=== PATIENT | male | born 1960 | race Caucasian/White ===

== ENCOUNTER 2025-03-30 19:43 | Emergency (ER) | payer MEDICARE ==
[~2025-03-30] VITALS: Ht 180.3 cm; Wt 120.0 kg
[2025-03-30 19:56] VITALS: TEMP 98
--- NOTE | 2025-03-30 20:05 | ELECTROCARDIOGRAPH REPORT ---
[facility] Test Date: 2025-03-30 Test Time: 19:52:21 Pat Name: DEBI CAMPBELL Department: EMERGENCY ROOM [id number] Room: Gender: M Director Of Automation: RICKEY : 1960 Requested By: WICHO ADAMSON Order Number: [id number] Reading MD: Dr. JYOTI Washington Measurements Intervals [place] Rate: 52 P: 48 OR: 201 QRS: -29 QRSD: 113 T: 54 QT: 441 QTc: 411 Interpretive Statements Sinus bradycardia Inferior infarct, old Consider anterior infarct Electronically Signed On 04-01-2025 11:47:[address] JYOTI Washington Please click the below link to view image of tracing.
--- NOTE | 2025-03-30 20:12 | Physician Documentation ---
History of Present Illness General Chief Complaint: Chest Pain Stated Complaint: CHEST PAIN Time Seen by MD: 20:11 History of Present Illness Initial Comments The patient is a 64-year-old male who complains of intermittent left-sided chest pain. Patient states he has had sharp left-sided chest pain launch of the lasting sec which began around 6:30 p.m. this evening. The patient states the last episode occurred proximally 10 minutes prior to my discussion with the patient. The patient states he had a cardiac workup in his home state of [place] in January which showed an area of previous myocardial infarction on a nuclear stress test. The patient has been on beta-blockers since that time. The patient traveled to [place] about a week and a half ago. He denies any shortness of breath. The patient denies any nausea or vomiting. Patient currently has no pain in the left chest. The patient denies any pleuritic component to this. He denies any vomiting patient's symptoms are mild and intermittent. Medication Reconciliation Allergies: Coded Allergies: No Known Allergies (Unverified , 03/30/25) Past Medical History Past Medical History: No Pertinent History Review of Systems All Other Systems at this time: Reviewed and Negative Physical Exam Physical Exam Vital Signs: Temperature: 98.0, Heart Rate: 53, Respiratory Rate: 24, BP: 122/74, Pulse Oximetry: 98, Weight: 120.000 Physical Exam VITALS: Reviewed and as above. GENERAL: Alert, no apparent distress. HEENT: Normocephalic, atraumatic, PERRL, EOMI, dry mucosa, no erythema RESPIRATORY: Lungs clear, normal breath sounds, no respiratory distress. CHEST: No accessory muscle use, no retractions CV: Regular rate, rhythm, no edema, no murmur, No: JVD GI: Soft, non-tender, bowels sounds present, no rebound, guarding, or rigidity BACK: No CVA tenderness, or swelling MUSCULOSKELETAL: No deformities, no edema SKIN: Warm and dry, no rash NEURO: Oriented x4, No motor or sensory deficit PSYCH: Normal mood and affect, no agitation Progress Results/Orders Results/Orders Orders - OHLMEHRDAD RAMIREZ MD Chest,Single View (03/30/25 20:04) Monitor (03/30/25 20:04) Saline Lock (03/30/25 20:04) Oxygen (03/30/25 20:04) Completed Orders - OHLFSMEHRDAD MD Chest,Single View (03/30/25 20:04) Cbc/Diff (03/30/25 20:04) BMP (03/30/25 20:04) PBNP (03/30/25 20:04) Electrocardiogram (03/30/25 20:04) Hs Troponin I W Calculations (03/30/25 20:04) Hs Troponin I W Calculations (03/30/25 22:04) D-Dimer (03/30/25 20:22) Ketorolac Trometh 15mg/Ml Vial (Toradol (03/30/25 23:20) Medications Received in ER Medications (Trade) Dose Ordered Sig/Freddie Route PRN Reason Start Time Stop Time Status Last Admin Dose Admin (Toradol injection) 15 mg ONCE ONCE IV 03/30/25 23:20 03/30/25 23:21 DC 03/31/25 00:09 15 MG Vital Signs 03/30/25 03/30/25 03/30/25 03/30/25 19:56 20:22 21:00 21:30 Temp 98.0 Pulse 53 50 54 Resp 24 12 14 12 B/P (MAP) 122/74 121/74 (90) 106/78 (87) Pulse Ox 98 96 98 03/30/25 03/30/25 03/30/25 03/30/25 22:00 22:30 23:00 23:58 Pulse 52 55 52 58 Resp 14 15 16 15 B/P (MAP) 102/65 (77) 102/58 (73) 93/55 (68) 100/56 (71) Pulse Ox 96 99 98 98 03/31/25 00:09 Resp 15 Laboratory Tests Test 03/30/25 20:49 03/30/25 22:18 White Blood Count 7.4 Red Blood Count 4.95 Hemoglobin 14.5 Hematocrit 43.2 Mean Corpuscular Volume 87.2 Mean Corpuscular Hemoglobin 29.2 Mean Corpuscular Hemoglobin Concent 33.5 Red Cell Distribution Width 14.2 Platelet Count 223 Mean Platelet Volume 7.2 L Neutrophils (%) (Auto) 56.9 Lymphocytes (%) (Auto) 30.1 Monocytes (%) (Auto) 10.0 Eosinophils (%) (Auto) 2.3 Basophils (%) (Auto) 0.7 Neutrophils # (Auto) 4.2 Lymphocytes # (Auto) 2.2 Monocytes # (Auto) 0.7 Eosinophils # (Auto) 0.2 Basophils # (Auto) 0.0 CBC Comment D-Dimer 0.33 D-Dimer Comment Sodium Level 136 Potassium Level 3.7 Chloride Level 102 Carbon Dioxide Level 28.7 Anion Gap 5 L Blood Urea Nitrogen 17 Creatinine 1.28 H Estimated GFR/1.73 m2 56 BUN/Creatinine Ratio 13.3 Glucose Level 161 H Calcium Level 8.4 L Troponin I High Sensitivity 10 10 Pro-B-Type Natriuretic Peptide 61 Albumin 3.2 L Chemistry Comments Troponin I High Sens Percent Delta 0 Troponin I Hi Sens Absolute Change 0 EKG/XRAY/CT/US/VASC/MRI Chest X-Ray : Additional Comments Patient: DEBI CAMPBELL Medical Record: [id number] [facility] : 1960, Age: 64 Sex: Male Location: ER Patient Status: REG ER Service Date/Time: 03/30/252003 Ordering Physician: MEHRDAD JIMENEZ MD Exam: CHEST,SINGLE VIEW EXAM: DI CHEST,SINGLE VIEW HISTORY: Chest pain TECHNIQUE: 1 view of the chest COMPARISON: None FINDINGS/IMPRESSION: LUNGS: No pleural effusion, consolidation, or pneumothorax. MEDIASTINUM: Unremarkable. BONES: No acute osseous abnormality. OTHER: None. Electronically Signed by:MARKUS CARMONA MD Date & Time: 03/30/252038 Dictated by: MARKUS CARMONA MD Dictation date and time: 03/30/252015 Primary Care Provider: NO PRIMARY CARE PROVIDER cc: MEHRDAD JIMENEZ MD ~ Heart Score: Heart Score Response (Comments) Value History Slightly Suspicious 0 EKG Normal 0 Age >65 2 Risk Factors >3 or Hx ASHD 2 Troponin Normal limit 0 Total 4 Medical Decision Making Additional information obtaine: old records Findings The patient's EKG is a left axis deviation with a sinus rhythm at a rate of 52, the patient has Q-waves inferiorly in three AVF and a sinus bradycardia. The patient's EKG was interpreted as a borderline EKG. Time of the EKG interpretation was 2029 Patient is a 64-year-old male with left-sided sharp chest pain. The patient states he recently with a an last several months has a stress test which showed no reversible defects in an old defect. The patient's workup here is unremarkable the patient's EKG appeared nonischemic. The patient's chest x-ray was interpreted by me as showing a normal cardiac silhouette normal mediastinum and normal-appearing lung johnson I interpreted as a normal chest x-ray I have also reviewed the radiologist's interpretation. The patient has serial troponins are negative the patient will be advised to follow up as an outpatient return if he develops worsening of symptoms. Differential Diagnosis Pleurisy, pulmonary embolism, myocardial ischemia, chest wall pain, pneumothorax Departure Impression: Primary Impression: Chest pain Qualified Codes: R07.9 - Chest pain, unspecified Discharge Instructions: Nonspecific Chest Pain, Adult Additional Instructions: Follow up with her healthcare providers soon as possible, return for worsening of your symptoms. Referrals: NO PRIMARY CARE PROVIDER (PCP) Signature Scribe Signature: No scribe Attestation: The note accurately reflects work and decisions made by me.Mehrdad Jimenez MD 03/31/25 05:37 MEHRDAD JIMENEZ MD Mar 30, 2025 20:12
--- NOTE | 2025-03-30 20:41 | RADIOLOGY REPORT ---
EXAM: DI CHEST,SINGLE VIEW HISTORY: Chest pain TECHNIQUE: 1 view of the chest COMPARISON: None FINDINGS/IMPRESSION: LUNGS: No pleural effusion, consolidation, or pneumothorax. MEDIASTINUM: Unremarkable. BONES: No acute osseous abnormality. OTHER: None.
[2025-03-30 21:00] LABS: MEAN PLATELET VOLUME 7.2 FL (7.4-10.4); RED CELL DISTRIBUTION WIDTH 14.2 % (11.5-14.5)
[2025-03-30 21:25] LABS: CREATININE 1.28 MG/DL (0.60-1.10); PRO BRAIN NATRIURETIC PEPTIDE 61 PG/ML (0-125); TOTAL CARBON DIOXIDE 28.7 MMOL/L (24-32); eCRCL 61 ML/MIN; eGFR 56 ML/MIN
[2025-03-30 23:58] VITALS: BP 100/56; PULSE 58; O2SAT 98
[2025-03-31 00:09] VITALS: RESP 15
[2025-03-31] MEDS: ketorolac trometh 15mg/ml vial 15 MG/ML ML IV ONE (00:09)
== END 2025-03-31 00:26 | disposition home or self-care (01) ==
LOC: ER 19:45
DX: R07.9 Chest pain, unspecified (principal); I25.2 Old myocardial infarction
CPT/HCPCS: 36415; 71045; 80048; 83880; 84484; 85025; 85379; 93005; 96374; 99285; J1885